=== PATIENT | male | born 1940 | race Caucasian/White ===

== ENCOUNTER → 2019-05-11 | Outpatient (CLI) | payer OTHER | END | disposition home or self-care (01) | LOC: SHCH 15:32 | PROVIDERS: ATTEND Internal Medicine Cardiovascular Disease | DX: I70.211 Atherosclerosis of native arteries of extremities with intermittent claudication, right leg (principal) | CPT/HCPCS: 93925 ==

== ENCOUNTER → 2019-05-19 | Outpatient (CLI) | payer OTHER ==
[~2019-05-19] MED LIST: REGADENOSON 0.4 MG/5 ML PF SYG IVP SCH
== END | disposition home or self-care (01) ==
LOC: EDUNIT# 08:30 → SHCH 08:41
PROVIDERS: ATTEND Internal Medicine Cardiovascular Disease
DX: I21.19 ST elevation (STEMI) myocardial infarction involving other coronary artery of inferior wall (principal); I21.29 ST elevation (STEMI) myocardial infarction involving other sites; I20.9 Angina pectoris, unspecified
CPT/HCPCS: 78452; 93017; 96374; A9500 ×2; J2785

== ENCOUNTER 2023-05-04 17:21 | Observation (INO) | payer MEDICARE, OTHER ==
[~2023-05-04] VITALS: Ht 172.7 cm; Wt 77.1 kg
[2023-05-04 18:37] LABS: BASOPHILS # (AUTO) 0.04 K/uL (0.00-0.20); BASOPHILS % (AUTO) 0.7 % (0.0-5.0); EOSINOPHILS # (AUTO) 0.42 K/uL (0.00-0.70); EOSINOPHILS % (AUTO) 7.6 % (0.0-8.0); HEMATOCRIT 40.8 % (42-54); IMMATURE GRANULOCYTE ABSOLUTE 0.01 K/uL (0-1); LYMPHOCYTES # (AUTO) 1.5 K/uL (1.0-4.8); LYMPHOCYTES % (AUTO) 26.3 % (21.0-51.0); MEAN CORPUSCULAR HEMOGLOBIN 29.3 pg (27.0-33.0); MEAN CORPUSCULAR HGB CONC 33.1 g/dL (32.0-36.0); MEAN CORPUSCULAR VOLUME 88.5 fL (79-99); MONOCYTES % (AUTO) 17.6 % (3.0-13.0); NEUTROPHILS # (AUTO) 2.6 K/uL (1.8-7.7); NEUTROPHILS % (AUTO) 47.6 % (40.0-77.0); PLATELET COUNT (AUTO) 115 K/uL (130-400); RED BLOOD CELL COUNT(AUTO) 4.61 MIL/uL (4.50-6.20); RED CELL DISTRIBUTION WIDTH 13.8 % (11.0-15.5); WHITE BLOOD COUNT (AUTO) 5.5 K/uL (4.8-10.8)
[2023-05-04 18:49] LABS: BILIRUBIN,TOTAL 0.7 mg/dL (0.2-1.0); CREATININE 1.1 mg/dL (0.5-1.5); POTASSIUM 4.1 mmol/L (3.5-5.1); TOTAL PROTEIN, SERUM 7.4 g/dL (6.0-8.3)
[2023-05-04 22:07] LABS: APPEARANCE,URINE CLEAR (CLEAR); BILIRUBIN,URINE NEGATIVE (NEGATIVE); COLOR,URINE YELLOW (YELLOW); GLUCOSE, URINE (UA) NEGATIVE (NEGATIVE); KETONES,URINE NEGATIVE (NEGATIVE); LEUKOCYTE ESTERASE ,URINE NEGATIVE Leu/uL (NEGATIVE); NITRATE,URINE NEGATIVE (NEGATIVE); OCCULT BLOOD,URINE NEGATIVE (NEGATIVE); PROTEIN,URINE 50 mg/dL (NEGATIVE)
[2023-05-04 22:09] LABS: ADD UA MICROSCOPIC YES
[2023-05-04 22:11] LABS: BACTERIA,URINE RARE /HPF (None Seen); MUCUS,URINE FEW LPF (None Seen); OTHER CASTS, URINE 3 /LPF (None Seen); SQUAMOUS EPITHELIAL CELL,UR RARE /HPF (0-2)
[2023-05-05] MEDS ORDERED: IOHEXOL-350 75 ML VIAL IV ONE (01:39)
[2023-05-05] MEDS ORDERED: ACETAMINOPHEN 325 MG TAB PO PRN ×2 (03:30)
[2023-05-05] MEDS ORDERED: ONDANSETRON 4MG INJ IV PRN (03:30)
[2023-05-05 07:25] LABS: BASOPHILS # (AUTO) 0.03 K/uL (0.00-0.20); BASOPHILS % (AUTO) 0.6 % (0.0-5.0); EOSINOPHILS # (AUTO) 0.44 K/uL (0.00-0.70); EOSINOPHILS % (AUTO) 8.9 % (0.0-8.0); HEMATOCRIT 37.1 % (42-54); IMMATURE GRANULOCYTE ABSOLUTE 0.02 K/uL (0-1); LYMPHOCYTES # (AUTO) 1.2 K/uL (1.0-4.8); LYMPHOCYTES % (AUTO) 24.2 % (21.0-51.0); MEAN CORPUSCULAR HEMOGLOBIN 29.8 pg (27.0-33.0); MEAN CORPUSCULAR HGB CONC 34.2 g/dL (32.0-36.0); MEAN CORPUSCULAR VOLUME 87.1 fL (79-99); MONOCYTES # (AUTO) 0.8 K/uL (0.1-1.0); MONOCYTES % (AUTO) 16.7 % (3.0-13.0); NEUTROPHILS # (AUTO) 2.4 K/uL (1.8-7.7); NEUTROPHILS % (AUTO) 49.2 % (40.0-77.0); PLATELET COUNT (AUTO) 97 K/uL (130-400); RED BLOOD CELL COUNT(AUTO) 4.26 MIL/uL (4.50-6.20)
[2023-05-05 07:40] LABS: INR 0.98 (0.85-1.15); PROTHROMBIN TIME 11.4 SEC (9.6-11.6)
[2023-05-05 07:42] LABS: PARTIAL THROMBOPLASTIN TIME 27.6 SEC (26.3-35.5)
[2023-05-05 07:45] LABS: ALBUMIN 3.5 g/dL (3.5-5.0); BILIRUBIN,TOTAL 0.7 mg/dL (0.2-1.0); MAGNESIUM 1.9 mg/dL (1.80-2.40); POTASSIUM 4.2 mmol/L (3.5-5.1); TOTAL PROTEIN, SERUM 7.1 g/dL (6.0-8.3)
[2023-05-05] MEDS: FAMOTIDINE 20MG TAB PO SCH (09:31)
[2023-05-05 10:13] VITALS: BP 156/68; PULSE 70; RESP 18; O2SAT 93
== END 2023-05-05 12:45 | disposition home or self-care (01) ==
LOC: EDH 17:21 → EDHIP 05-05 03:13 → INTOOBSV 05-05 03:13 → EDHIP 05-05 05:22
PROVIDERS: ADMIT Internal Medicine; ATTEND Internal Medicine
DX: I65.23 Occlusion and stenosis of bilateral carotid arteries (principal); D64.9 Anemia, unspecified; D69.6 Thrombocytopenia, unspecified; E78.00 Pure hypercholesterolemia, unspecified; I11.9 Hypertensive heart disease without heart failure; I25.10 Atherosclerotic heart disease of native coronary artery without angina pectoris; Z95.1 Presence of aortocoronary bypass graft; Z96.652 Presence of left artificial knee joint; Z79.82 Long term (current) use of aspirin; Z95.5 Presence of coronary angioplasty implant and graft; Z79.899 Other long term (current) drug therapy
CPT/HCPCS: 84484; 80053 ×2; 85025 ×2; 87088; 81001; 36415 ×2; 71045; 93005; 99285; 83735; 80061; 85610; 85730; 70496; 70498; G0378 ×3; Q9967

== ENCOUNTER 2023-06-17 07:02 | Day surgery (SDC) | payer OTHER ==
[2023-06-15 09:37] LABS: APPEARANCE,URINE CLEAR (CLEAR); BILIRUBIN,URINE NEGATIVE (NEGATIVE); COLOR,URINE LIGHT-YELLOW (YELLOW); GLUCOSE, URINE (UA) NEGATIVE (NEGATIVE); KETONES,URINE NEGATIVE (NEGATIVE); LEUKOCYTE ESTERASE ,URINE NEGATIVE Leu/uL (NEGATIVE); NITRATE,URINE NEGATIVE (NEGATIVE); OCCULT BLOOD,URINE NEGATIVE (NEGATIVE); PROTEIN,URINE 20 mg/dL (NEGATIVE); UROBILINOGEN,URINE 0.2 mg/dL (0.2-1.0)
[2023-06-15 09:40] LABS: ADD UA MICROSCOPIC YES
[2023-06-15 09:42] LABS: MUCUS,URINE RARE LPF (None Seen); RBC,URINE 0-1 /HPF (0-1)
[2023-06-15 09:43] VITALS: BP 133/61; PULSE 59; RESP 18
[2023-06-15 09:48] LABS: BASOPHILS # (AUTO) 0.06 K/uL (0.00-0.20); BASOPHILS % (AUTO) 0.8 % (0.0-5.0); EOSINOPHILS # (AUTO) 0.49 K/uL (0.00-0.70); EOSINOPHILS % (AUTO) 6.3 % (0.0-8.0); HEMATOCRIT 40.8 % (42-54); IMMATURE GRANULOCYTE ABSOLUTE 0.01 K/uL (0-1); LYMPHOCYTES # (AUTO) 1.8 K/uL (1.0-4.8); LYMPHOCYTES % (AUTO) 22.8 % (21.0-51.0); MEAN CORPUSCULAR HEMOGLOBIN 30.5 pg (27.0-33.0); MEAN CORPUSCULAR HGB CONC 32.8 g/dL (32.0-36.0); MEAN CORPUSCULAR VOLUME 92.9 fL (79-99); MONOCYTES % (AUTO) 12.3 % (3.0-13.0); NEUTROPHILS # (AUTO) 4.5 K/uL (1.8-7.7); NEUTROPHILS % (AUTO) 57.7 % (40.0-77.0); PLATELET COUNT (AUTO) 140 K/uL (130-400); RED BLOOD CELL COUNT(AUTO) 4.39 MIL/uL (4.50-6.20); RED CELL DISTRIBUTION WIDTH 14.3 % (11.0-15.5); WHITE BLOOD COUNT (AUTO) 7.8 K/uL (4.8-10.8)
[2023-06-15 09:59] LABS: CREATININE 0.9 mg/dL (0.5-1.3); INR 0.94 (0.85-1.15); POTASSIUM 4.7 mmol/L (3.5-5.1); PROTHROMBIN TIME 11.1 SEC (9.6-11.6)
[2023-06-15 10:00] LABS: PARTIAL THROMBOPLASTIN TIME 27.6 SEC (26.3-35.5)
[2023-06-15 10:23] LABS: B-TYPE NATRIURETIC PEPTIDE 63 pg/mL (0-100)
[~2023-06-17] VITALS: Ht 174 cm; Wt 79.3 kg
[2023-06-17] VITALS (12 sets, daily range): BP systolic 127–176; BP diastolic 45–65; PULSE 53–77; RESP 14–16
[~2023-06-17 07:02] MED LIST changes: +AEC81 PO; +CLOP75TA32 PO; +EZET10TA48 PO; +LOSA50TA64 PO; +METO-408 PO; -REGADENOSON 0.4 MG/5 ML PF SYG IVP SCH; +ROSU40TA21 PO
[2023-06-17] MEDS: 0.9%NACL 1000ML 1,000 ML IV ONE (08:04)
[2023-06-17] MEDS ORDERED: LIDOCAINE HCL 400MG/20ML VIAL ONE (09:32)
[2023-06-17] MEDS ORDERED: IOHEXOL-350 50ML VIAL IV ONE (09:32)
[2023-06-17] MEDS ORDERED: MEPERIDINE-PF 25 MG/ML SYG ONE (09:32)
[2023-06-17] MEDS ORDERED: NITROGLYCERIN 50MG VIAL ONE (09:32)
[2023-06-17] MEDS ORDERED: MIDAZOLAM HCL 1 MG/ML 2ML VIAL ONE (09:32)
[2023-06-17] MEDS ORDERED: HEPARIN 10,000 UNIT/10ML (1,000 UNIT/ML) VIAL ONE (09:32)
[2023-06-17] MEDS ORDERED: IOHEXOL 350 MG/ML 100ML INFUS..BTL IV ONE (09:32)
[2023-06-17] MEDS ORDERED: 0.9%NACL 1000ML 1,000 ML IV SCH (11:00)
== END 2023-06-17 16:55 | disposition home or self-care (01) ==
LOC: DAH 07:02
PROVIDERS: ATTEND Internal Medicine Cardiovascular Disease
DX: I25.119 Atherosclerotic heart disease of native coronary artery with unspecified angina pectoris (principal); I65.23 Occlusion and stenosis of bilateral carotid arteries; I25.82 Chronic total occlusion of coronary artery; I10 Essential (primary) hypertension; E78.2 Mixed hyperlipidemia; I45.10 Unspecified right bundle-branch block; Z79.899 Other long term (current) drug therapy; Z79.01 Long term (current) use of anticoagulants; Z95.5 Presence of coronary angioplasty implant and graft; Z86.73 Personal history of transient ischemic attack (TIA), and cerebral infarction without residual deficits; Z82.49 Family history of ischemic heart disease and other diseases of the circulatory system; Z98.890 Other specified postprocedural states
CPT/HCPCS: 80048; 83880; 85025; 85610; 85730; 81001; 36415; 71045; 93005; 93459; 36223; 36225; C1887; C1894; C1893; C1760; J3490 ×2; J7030; J2250; J2175; J1644; Q9967; A4215; A4222; A4221; A4663; A4216; A4606; Q9965 ×2; A4223 ×3; 96360; 96361; 99156; 99157

== ENCOUNTER → 2024-05-02 | Outpatient (CLI) | payer OTHER ==
[~2024-05-02] MED LIST changes: -AEC81 PO; +ASPI-1005 PO; +FAMO20TA8 PO; -LOSA50TA64 PO; -METO-408 PO; -ROSU40TA21 PO; +ROSU40TA88 PO
--- NOTE | 2024-05-04 12:08 | HMCSR ---
APPROVED REPORT Laterality: Bilateral Indications I65.22 Doppler Spectral Velocity Analysis PSV / EDVPSV / EDV ECA (R) 303 / cm/sECA (L) 532 / cm/s dICA (R) 52 / 11 cm/sdICA (L) 78 / 19 cm/s Zenaida (R) 132 / 26 cm/smICA (L) 113 / 28 cm/s pICA (R) 92 / 10 cm/spICA (L) 113 / 22 cm/s dCCA (R) 72 / 15 cm/sdCCA (L) 75 / 16 cm/s mCCA (R) 73 / 16 cm/smCCA (L) 78 / 16 cm/s pCCA (R) 70 / 10 cm/spCCA (L) 83 / 12 cm/s Vert (R) 67 / cm/sVert (L) 79 / cm/s Subl. (R) 150 / cm/sSubl. (L) 160 / cm/s ICA/CCA 1.81ICA/CCA 1.36 Technologist Impression Moderate calcified plaque noted in the bilateral ICA/ ECA bulbs. Right ICA shows evidence of a patent stent, with mildly increased velocities. Left ICA appears patent, calcific image drop out proximally. Significant velocities in the right and left ECA's . Bilateral vertebral arteries appear antegrade. Conclusion Moderate calcified plaque noted in the bilateral ICA/ ECA bulbs. Right ICA shows evidence of a patent stent, with mildly increased velocities. Left ICA appears patent, calcific image drop out proximally. Significant velocities in the right and left ECA's . Bilateral vertebral arteries appear antegrade. Conclusion Moderate calcified plaque noted in the bilateral ICA/ ECA bulbs. Right ICA shows evidence of a patent stent, with mildly increased velocities. Left ICA appears patent, calcific image drop out proximally. Significant velocities in the right and left ECA's . Bilateral vertebral arteries appear antegrade.
== END | disposition home or self-care (01) ==
LOC: SHCH 13:21
PROVIDERS: ATTEND Internal Medicine Cardiovascular Disease
DX: I65.23 Occlusion and stenosis of bilateral carotid arteries (principal)
CPT/HCPCS: 93880

== ENCOUNTER → 2024-05-24 | Outpatient (CLI) | payer OTHER ==
[~2024-05-24] MED LIST changes: +IOHEXOL 350 MG/ML 100ML INFUS..BTL IV ONE
--- NOTE | 2024-05-24 12:10 | HMCIMG ---
CT ANGIOGRAM OF THE NECK WITHOUT AND WITH CONTRAST. CT RECONSTRUCTIONS WITHOUT AND WITH CONTRAST. INDICATION: Evaluation for occlusion or stenosis of carotid arteries TECHNIQUE: 3-D helical CT acquisition of the neck obtained before and after bolus contrast administration of 125 mL of Omnipaque 350 contrast. Volumetric data was transferred to a [employer] workstation for post processing including 3-D volumetric rendering and multiplanar reconstructions (MPR). Reconstructions reformatted in axial, sagittal, and coronal planes. CT was performed with one or more of the following dose reduction techniques: Automated exposure control, adjustment of the mA and/or kV according to patient size, or use of iterative reconstruction technique. COMPARISON: No prior studies available for comparison. FINDINGS: Mild calcific plaque is present along the malik of the cavernous segments of both internal carotid arteries. Mild calcific plaque along both vertebral arteries at the level of the foramen magnum. Mild calcific plaque along the aortic arch and proximal great vessel malik. Mild calcific plaque along the bilateral subclavian arterial malik CAROTID ARTERIES: Patent proximal right internal carotid arterial stent. Mild calcific plaque along the bilateral distal common carotid arterial malik as well as more pronounced along the bilateral common carotid arterial bulb malik, including extension into along the proximal left internal carotid arterial malik and proximal right greater than left external carotid arterial malik without moderate or high-grade stenosis. Remainder of the bilateral common, external, and cervical internal carotid arteries appear normal. VERTEBRAL ARTERIES: Both vertebral arteries appear normal along the cervical spine, without evidence for dissection. 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 Patent proximal right internal carotid arterial stent. CAROTID STENOSIS REFERENCE USING NASCET CRITERIA: % ICA stenosis = (1 - narrowest ICA diameter/diameter of distal cervical ICA) x 100. Mild - <50% stenosis. Moderate - 50-69% stenosis. Severe - 70-94% stenosis. Near occlusion - 95-99% stenosis. Occluded - 100% stenosis.
== END | disposition home or self-care (01) ==
LOC: RAH 08:50
PROVIDERS: ATTEND Internal Medicine Cardiovascular Disease
DX: I65.23 Occlusion and stenosis of bilateral carotid arteries (principal); I70.0 Atherosclerosis of aorta
CPT/HCPCS: 70498; Q9967